=== PATIENT | male | born 1955 | race Caucasian/White ===

== ENCOUNTER 2022-01-02 20:00 | Outpatient (CLI) | payer OTHER, SELFPAY | END 2022-01-02 20:01 | disposition home or self-care (01) | LOC: SLEEP 01-03 08:07 | PROVIDERS: Family Provider Internal Medicine; PCP Internal Medicine; Visit Provider Family Medicine | DX: G47.33 Obstructive sleep apnea (adult) (pediatric) (principal); G47.00 Insomnia, unspecified | CPT/HCPCS: 95810 ==

== ENCOUNTER 2022-03-01 20:00 | Outpatient (CLI) | payer MEDICARE, SELFPAY | END 2022-03-01 20:01 | disposition home or self-care (01) | LOC: SLEEP 03-02 08:14 | PROVIDERS: Family Provider Internal Medicine; PCP Internal Medicine; Visit Provider Family Medicine | DX: G47.33 Obstructive sleep apnea (adult) (pediatric) (principal) | CPT/HCPCS: 95811 ==

== ENCOUNTER 2023-10-01 12:57 | Outpatient (CLI) | payer MEDICARE, SELFPAY ==
--- NOTE | 2023-10-01 13:06 | XR_ITS ---
WS: [id number] XR knee RT 3V* [id number] REASON FOR EXAM: PAIN IN R KNEE FINDINGS: No fracture or focal bone lesion. Moderate narrowing of the medial knee joint space with mild to moderate subchondral sclerosis and mil d marginal osteophytosis. The lateral knee joint space is intact and relatively well preserved. There is moderate subchondral sclerosis and osteophytosis of the patella with moderate opposing osteo phytes of the femoral condyles. No soft tissue abnormality identified. IMPRESSION: Moderate osteoarthritis.
--- NOTE | 2023-10-01 13:06 | XR_ITS ---
WS: [id number] XR knee LT 3V* [id number] REASON FOR EXAM: PAIN IN LEFT KNEE FINDINGS: No fracture or focal bone lesion. Moderate narrowing of the medial knee joint space with moderate subchondral sclerosis and significant marginal osteophytosis. There is mild narrowing of the lateral joint space with mild subchondral sclerosis and mild marginal osteophytosis. There is moderate subchondral sclerosis of the patella with moderate osteophytosis. Moderate opposing osteophytosis of the femoral condyles. No soft tissue abnormality. IMPRESSION: Moderate osteoarthritis of the left knee.
== END 2023-10-01 12:58 | disposition home or self-care (01) ==
LOC: RAD 13:00
PROVIDERS: Family Provider Internal Medicine; PCP Family Medicine; Visit Provider Family Medicine
DX: M17.0 Bilateral primary osteoarthritis of knee (principal)
CPT/HCPCS: 73562

== ENCOUNTER → 2023-10-25 11:47 | Outpatient (BNVA) | payer MEDICARE, SELFPAY | PROVIDERS: Family Provider Internal Medicine; PCP Family Medicine; Referring Provider Family Medicine; Visit Provider Nurse Practitioner | DX: M17.0 Bilateral primary osteoarthritis of knee | CPT/HCPCS: 73560; 99204 ==

== ENCOUNTER → 2023-11-01 07:57 | Outpatient (BNVA) | payer MEDICARE, SELFPAY | PROVIDERS: Family Provider Internal Medicine; PCP Family Medicine; Visit Provider Nurse Practitioner | DX: M17.0 Bilateral primary osteoarthritis of knee (principal); Z71.89 Other specified counseling | CPT/HCPCS: 20610; J7326 ==

== ENCOUNTER → 2024-02-03 11:02 | Outpatient (BNVA) | payer MEDICARE, SELFPAY | PROVIDERS: Family Provider Internal Medicine; PCP Family Medicine; Visit Provider Specialist | DX: M17.0 Bilateral primary osteoarthritis of knee | CPT/HCPCS: 20610; J1100; J2795; J3301 ==

== ENCOUNTER → 2024-05-08 09:54 | Outpatient (BNVA) | payer MEDICARE, SELFPAY | PROVIDERS: Family Provider Internal Medicine; PCP Family Medicine; Visit Provider Nurse Practitioner | DX: M17.0 Bilateral primary osteoarthritis of knee (principal) | CPT/HCPCS: 20610; J7326 ==

== ENCOUNTER → 2024-11-06 10:41 | Outpatient (BNVA) | payer MEDICARE, SELFPAY | PROVIDERS: Family Provider Internal Medicine; PCP Family Medicine; Visit Provider Nurse Practitioner | DX: M17.0 Bilateral primary osteoarthritis of knee (principal); Z71.89 Other specified counseling | CPT/HCPCS: 20610; 99213; J7326 ==